=== PATIENT | female | born 1980 ===

== ENCOUNTER 2022-02-12 11:15 | Inpatient (IN) | payer OTHER ==
[~2022-02-12] VITALS: Ht 157.5 cm; Wt 77.1 kg
[2022-02-12] MEDS ORDERED: SYNTHROID50 MCG PO (13:52)
[2022-02-12] MEDS ORDERED: PREDNISOLON5 MG/5 ML PO (13:52)
[2022-02-12] MEDS ORDERED: IMURAN50 MG PO (13:53)
[2022-02-12] MEDS ORDERED: ZESTRIL10 M1 PO (13:54)
[2022-02-12] MEDS ORDERED: METFORMIN HCL500 M3 PO (13:54)
[2022-02-12] MEDS ORDERED: PROTONIX40 MG PO (13:54)
[2022-02-12] MEDS ORDERED: CLONAZEPAM1 MG PO (13:54)
[2022-02-12] MEDS ORDERED: FOLIC ACID0.8 M1 PO (13:55)
== END 2022-03-19 19:32 | disposition home or self-care (01) | DRG 734 ==
LOC: OB/GYN 02-14 11:15 → O/R 03-15 09:21 → OB/GYN 03-15 11:15
PROVIDERS: ADMIT Specialist; ATTEND Specialist
PROC: 07TC0ZZ Resection of Pelvis Lymphatic, Open Approach (ICD-10-PCS; 2022-03-15)
PROC: 0UT90ZZ Resection of Uterus, Open Approach (ICD-10-PCS; 2022-03-15)
PROC: 0UT70ZZ Resection of Bilateral Fallopian Tubes, Open Approach (ICD-10-PCS; 2022-03-15)
PROC: 0UT20ZZ Resection of Bilateral Ovaries, Open Approach (ICD-10-PCS; 2022-03-15)
PROC: 0DBU0ZZ Excision of Omentum, Open Approach (ICD-10-PCS; 2022-03-15)
PROC: 07TD0ZZ Resection of Aortic Lymphatic, Open Approach (ICD-10-PCS; principal; 2022-03-15 13:30)
PROC: 30233N1 Transfusion of Nonautologous Red Blood Cells into Peripheral Vein, Percutaneous Approach (ICD-10-PCS; 2022-03-17)
DX: C54.1 Malignant neoplasm of endometrium (principal); C78.6 Secondary malignant neoplasm of retroperitoneum and peritoneum; C79.82 Secondary malignant neoplasm of genital organs; D62 Acute posthemorrhagic anemia; D25.1 Intramural leiomyoma of uterus; D25.2 Subserosal leiomyoma of uterus; N80.2 Endometriosis of fallopian tube; N80.1 Endometriosis of ovary; Z20.822 Contact with and (suspected) exposure to COVID-19

== ENCOUNTER 2022-03-14 11:54 | Outpatient (CLI) | payer OTHER ==
[~2022-03-14 11:54] MED LIST: CLONAZEPAM1 MG PO; FOLIC ACID0.8 M1 PO; IMURAN50 MG PO; METFORMIN HCL500 M3 PO; PREDNISOLON5 MG/5 ML PO; PROTONIX40 MG PO; SYNTHROID50 MCG PO; ZESTRIL10 M1 PO
== END 2022-03-14 12:05 | disposition home or self-care (01) ==
LOC: LAB 11:54
PROVIDERS: ATTEND Specialist
DX: I10 Essential (primary) hypertension (principal); I27.89 Other specified pulmonary heart diseases; Z20.822 Contact with and (suspected) exposure to COVID-19